=== PATIENT | female | born 1970 | race Caucasian/White ===

== ENCOUNTER 2017-12-23 14:16 | Inpatient (IN) | payer MEDICAID, OTHER ==
[~2017-12-23] VITALS: Ht 160 cm; Wt 54.7 kg
[~2017-12-23 14:16] MED LIST: ALPR0.5T99 PO; HYDR50 PO; LEVA500T PO; METO25CR PO; METR-1 PO; NAPR-810 PO; NORC7.5T PO; NYST100010 TOP; ZITHTAB PO; ZOFR4TAB3 SL
[2017-12-23 15:35] VITALS: BP 144/81; PULSE 101; RESP 17; TEMP 99.5; O2SAT 97
[2017-12-23] MEDS ORDERED: diphenhydrAMINE HCL 50 MG CAP - HS PRN PO (16:30)
[2017-12-23] MEDS ORDERED: HALOPERIDOL LACTATE 5 MG/ML AMP IM PRN (16:30)
[2017-12-23] MEDS ORDERED: diphenhydrAMINE HCL 50 MG CAP PO PRN (16:30)
[2017-12-23] MEDS ORDERED: ALUMINUM/MAGNESIUM/SIMETH 30 ML CUP PO PRN (16:30)
[2017-12-23] MEDS ORDERED: LORazepam 2 MG/ML VIAL IV PUSH PRN ×4 (16:30)
[2017-12-23] MEDS ORDERED: MAGNESIUM HYDROXIDE SUSP 30 ML CUP PO PRN (16:30)
[2017-12-23] MEDS ORDERED: hydrOXYzine HCL 50 MG TAB PO PRN (16:30)
[2017-12-23] MEDS ORDERED: diphenhydrAMINE HCL 50 MG/ML VIAL - HS PRN IM (16:30)
[2017-12-23] MEDS ORDERED: diphenhydrAMINE HCL 50 MG/ML VIAL IM PRN (16:30)
[2017-12-23] MEDS ORDERED: FLUMAZENIL 0.5 MG/5 ML VIAL IV PUSH PRN (16:30)
[2017-12-23] MEDS: LORazepam 2 MG TAB PO PRN (16:52)
[2017-12-23] MEDS: NICOTINE 21 MG/24 HR PATCH T-DERMAL SCH ×2 (17:01→22:05)
[2017-12-23 19:00] VITALS: BP 144/81; PULSE 101; RESP 17; TEMP 99.5; O2SAT 97
[2017-12-23] MEDS: REMOVE OLD NICOTINE PATCH T-DERMAL SCH (21:00)
[2017-12-23] MEDS: ACETAMINOPHEN 325 MG TAB PO PRN (22:36)
[2017-12-24 05:52] VITALS: BP 139/90; PULSE 90; RESP 20; TEMP 97.8; O2SAT 97
[2017-12-24] MEDS: NICOTINE 21 MG/24 HR PATCH T-DERMAL SCH (08:12)
[2017-12-24] MEDS: LORazepam 1 MG TAB PO PRN ×4 (08:12→22:24)
[2017-12-24] MEDS ORDERED: MIRTAZAPINE 15 MG TAB PO ONE (08:30)
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
[2017-12-24] MEDS: hydrOXYzine HCL 50 MG TAB PO PRN ×2 (08:57→18:00)
[2017-12-24] MEDS ORDERED: PNEUMOCOCCAL POLYVALENT INJ 25 MCG/0.5 ML SYR IM ONE (10:00)
[2017-12-24] MEDS: FOLIC ACID 1 MG TAB PO SCH (14:07)
[2017-12-24] MEDS: THIAMINE HCL 100 MG TAB PO SCH (14:07)
--- NOTE | 2017-12-24 14:15 | PD.CONS ---
HPI Service [facility] Consult Requested By Psychiatry team Reason for Consult Assist with medical management Primary Care Physician Justino Lackey D.O. Diagnoses: History of Present Illness Patient is a 47-year-old female with primary medical history of HTN, HLD, cirrhosis, chronic pain, anxiety, cervical cancer, GERD who is a transfer from [facility]. Review of record, patient is under Bo act by [place] [employer] 12/20/17 trying to kill herself 12/19/17 drowning herself in the bathtub, and admits to being suicidal to the law enforcement. Patient states that she was drinking too much and does not know what is going on in happening to her that it was not a good idea that she tried to drown herself in the bathtub. Patient admits to drinking vodka every day. States that she attempted to be sober for several times but she started drinking back. Complains of chronic back pain is states she is taking Percocets before but was discontinued because of liver cirrhosis. Patient states she was placed on oxycodone after. Requesting for pain medicine. States pain is 6-8/10, radiating to her legs, aggravated by movement, relieved by pain medicine. States that Tylenol is not working. She reports that she does not have any alcohol withdrawal seizures but when she withdraws from alcohol she has chest pain, palpitations, nausea, vomiting, diarrhea. She also states that she has the "shakes" when this happens. Review of Systems Constitutional: DENIES: Fever, Chills, Change in appetite Eyes: DENIES: Blurred vision, Eye pain, Double Vision Ears, nose, mouth, throat: DENIES: Tinnitus, Nasal discharge, Oral lesions, Throat pain, Hoarseness, Running Nose Respiratory: DENIES: Cough, Wheezing, Sputum production, Shortness of breath Cardiovascular: COMPLAINS OF: Palpitations, DENIES: Dyspnea on Exertion, Lower Extremity Edema Gastrointestinal: DENIES: Abdominal pain Musculoskeletal: COMPLAINS OF: Muscle aches, Stiffness, Back pain, Neck pain Neurologic: COMPLAINS OF: Headache, Tremor, DENIES: Localized weakness, Paresthesias Psychiatric: COMPLAINS OF: Anxiety, Mood changes, Depression, Hallucinations Past Family Social History Allergies: Coded Allergies: ketorolac (Unverified Allergy, Intermediate, hives, 11/08/17) Uncoded Allergies: STEROIDS (Allergy, Unknown, Swelling, 11/08/17) Past Medical History Anxiety Cervical cancer GERD HTN Chronic pain HLD Cirrhosis of the liver Past Surgical History TSH L Cholecystectomy Discectomy with hardware placement cervical spine Reported Medications Reports she takes oxycodone, metoprolol Active Ordered Medications Current Medications Medications (Trade) Dose Ordered Sig/Jael Route Start Time Stop Time Status Last Admin (Benadryl) 50 mg Q6H PRN PO 12/23/17 16:30 (Benadryl) 50 mg HS PRN PO 12/23/17 16:30 (Tylenol) 650 mg Q4H PRN PO 12/23/17 16:30 12/23/17 22:36 (Milk Of Magnesia Liq) 30 ml DAILY PRN PO 12/23/17 16:30 (Mag-Al Plus Susp Liq) 30 ml Q6H PRN PO 12/23/17 16:30 (Habitrol 21 Mg Patch.24 Hr) 1 patch DAILY T-DERMAL 12/23/17 17:00 12/24/17 08:12 Miscellaneous Information 1 HS T-DERMAL 12/23/17 21:00 12/23/17 21:00 (Ativan) 1 mg Q4H PRN PO 12/23/17 16:30 12/24/17 11:22 (Ativan Inj) 1 mg Q4H PRN IV PUSH 12/23/17 16:30 (Ativan) 2 mg Q2H PRN PO 12/23/17 16:30 12/23/17 16:52 (Ativan Inj) 2 mg Q2H PRN IV PUSH 12/23/17 16:30 (Ativan Inj) 2 mg Q1H PRN IV PUSH 12/23/17 16:30 (Ativan Inj) 2 mg Q15M PRN IV PUSH 12/23/17 16:30 (Romazicon Inj) 0.2 mg Q1M PRN IV PUSH 12/23/17 16:30 (Atarax) 50 mg Q6H PRN PO 12/24/17 08:15 12/24/17 08:57 (SEROquel) 50 mg HS PO 12/24/17 21:00 (Folate) 1 mg DAILY PO 12/24/17 13:30 12/24/17 14:07 (Vitamin B1) 100 mg DAILY PO 12/24/17 13:30 12/24/17 14:07 Family History Mother has breast cancer Does not know father's medical history Social History Alcohol use daily Current smoker, half a pack per day 30 years Denies illicit drug use Physical Exam Vital Signs Vital Signs Date Time Temp Pulse Resp B/P (MAP) Pulse Ox O2 Delivery O2 Flow Rate FiO2 12/24/17 05:52 97.8 90 20 139/90 (106) 97 12/23/17 19:00 99.5 101 17 144/81 (102) 97 12/23/17 15:35 99.5 101 17 144/81 (102) 97 Physical Exam GENERAL: This is a disheveled, appears older than stated age patient, in no apparent distress. SKIN: Warm and dry. Found Nitropaste patch bilateral extremity, states this is from [facility], dated 12/23/17 HEAD: Atraumatic. Normocephalic. No temporal or scalp tenderness. EYES: Pupils equal round and reactive. Extraocular motions intact. No scleral icterus. No injection or drainage. ENT: Nose without bleeding. Throat without erythema. Uvula midline. Airway patent. NECK: Trachea midline. CARDIOVASCULAR: Regular rate and rhythm without murmurs, gallops, or rubs. RESPIRATORY: Clear to auscultation. Breath sounds equal bilaterally. No wheezes , rales, or rhonchi. GASTROINTESTINAL: Abdomen soft, non-tender, nondistended. Bowel sounds active 4 MUSCULOSKELETAL: Extremities without clubbing, cyanosis, or edema. Nontender to palpation cervical lumbar NEUROLOGICAL: Awake and alert. Cranial nerves II through XII intact. Motor and sensory grossly within normal limits. Normal speech. Assessment and Plan Problem List: (1) HTN (hypertension) ICD Code: I10 - Essential (primary) hypertension (2) Alcohol abuse with intoxication ICD Code: F10.129 - Alcohol abuse with intoxication, unspecified (3) Adjustment disorder with mixed disturbance of emotions and conduct ICD Code: F43.25 - Adjustment disorder with mixed disturbance of emotions and conduct (4) Drug-induced mood disorder ICD Code: F19.94 - Other psychoactive substance use, unspecified with psychoactive substance-induced mood disorder Status: Acute Assessment and Plan Patient is a 47-year-old female with primary medical history of HTN, HLD, cirrhosis, chronic pain, anxiety, cervical cancer, GERD who is a transfer from [facility] for suicide attempt, [place]. She is now admitted to inpatient evaluation. Consulted for assistance in medical management Depression, anxiety Drug-induced disorder -Managed by psychiatry HTN -States she is taking metoprolol at home -Will ask nursing to reconcile meds. -Current BP trend within normal, slight tachycardia -this can also be possibly from withdrawals Alcohol abuse Liver cirrhosis -Check LFTs -Avoid hepatotoxic agents -Folic acid, thiamine, multivitamin Chronic pain -Patient states she is taking oxycodone at home review of [employer] patient is not on any medications except for alprazolam -Previously was given morphine 15 mg tablets last dose was 09/21/17, hydrocodone/acetaminophen 10 mg/325mg last dose 08/31/17 -We will not give patient narcotic medications, she appears to have seeking behaviors. -Baclofen TID Dysuria -check ua DVT prop ambulatory Code Status Full code Discussed Condition With Patient, nursing Dann Marroquin Dec 24, 2017 14:15
[2017-12-24 14:59] LABS: BILIRUBIN, URINE NEG (NEG); BLOOD, URINE NEG (NEG); GLUCOSE,URINE NEG (NEG); KETONE, URINE NEG (NEG); MUCUS URINE FEW /lpf (OCC); NITRITE,URINE NEG (NEG); SQUAMOUS EPITHELIAL CELL URINE <1 /hpf (0-5); URINE COLOR YELLOW (YELLW/STRAW); URINE LEUKOCYTE ESTERASE TRACE (NEG)
[2017-12-24] MEDS: BACLOFEN 10 MG TAB PO PRN (18:15)
[2017-12-24 18:33] VITALS: BP 130/82; PULSE 80; RESP 18; TEMP 98.4; O2SAT 96
[2017-12-24] MEDS: REMOVE OLD NICOTINE PATCH T-DERMAL SCH (20:58)
[2017-12-24] MEDS ORDERED: QUEtiapine FUMARATE 25 MG TAB PO SCH (21:00)
[2017-12-25 05:40] VITALS: BP 147/96; PULSE 111; RESP 16; TEMP 98.2; O2SAT 95
[2017-12-25] MEDS: THIAMINE HCL 100 MG TAB PO SCH (08:36)
[2017-12-25] MEDS: FOLIC ACID 1 MG TAB PO SCH (08:36)
[2017-12-25] MEDS: NICOTINE 21 MG/24 HR PATCH T-DERMAL SCH (09:00)
[2017-12-25] MEDS: BACLOFEN 10 MG TAB PO PRN ×2 (09:22→17:42)
[2017-12-25] MEDS: LORazepam 1 MG TAB PO PRN ×2 (09:22→17:42)
[2017-12-25 10:02] LABS: ALBUMIN 3.5 GM/DL (3.4-5.0); AST (GOT) 69 U/L (15-37); BICARBONATE 26.4 MEQ/L (21.0-32.0); BLOOD UREA NITROGEN 12 MG/DL (7-18); CALCIUM 9.2 MG/DL (8.5-10.1); CHLORIDE 105 MEQ/L (98-107); CREATININE 0.55 MG/DL (0.50-1.00); GLOMERULAR FILTRATION RATE 118 ML/MIN (>89); GLUCOSE,RANDOM 130 MG/DL (74-106); SODIUM (NA) 140 MEQ/L (136-145)
[2017-12-25 10:03] LABS: ALT (GPT) 47 U/L (10-53); CHOLESTEROL 190 MG/DL (120-200); DIRECT BILIRUBIN ADULT 0.2 MG/DL (0.0-0.2); TRIGLYCERIDES 105 MG/DL (42-150)
[2017-12-25 10:05] LABS: ALKALINE PHOSPHATASE 248 U/L (45-117); CHOLESTEROL/ HDL RATIO 1.99 RATIO; HDL CHOLESTEROL 95.4 MG/DL (40.0-60.0); INDIRECT BILIRUBIN 0.4 MG/DL (0.0-0.8); LDL CHOLESTEROL 74 MG/DL (0-99); TOTAL BILIRUBIN ADULT 0.6 MG/DL (0.2-1.0); TOTAL PROTEIN 8.3 GM/DL (6.4-8.2)
[2017-12-25] MEDS: LORazepam 2 MG TAB PO PRN (11:26)
--- NOTE | 2017-12-25 11:39 | PD.PSY.CON ---
Provisional Diagnosis Admission Date Dec 23, 2017 at 15:10 [place] I. 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 Yee Reason for Consult Second opinion Primary Care Physician Justino Lackey D.O. HPI Patient 47-year-old white female comes here under Bo act by the [place] [employer] dated 12/20/17 at 222 hours that document reviewed stating that contact was made with Mima hearing responding to the seeing upon arrival they spoke with her it was learned that Mima tried to kill herself at night 12/19 9 drowning herself in a bathtub and asked if she was still suicidal and she said yes to the law enforcement officers it appears she try to kill herself a few weeks ago by medication overdose with Bo acted at that time also patient seen screened at [facility] blood alcohol level of 282. At the present time patient sitting in her room nurse Radha present throughout session. Patient is alert disheveled reluctantly acknowledges being an alcoholic with daily drinking cello drinking she drinks vodka she has a history of blacking out and passing out. Patient states she lives with her who is also a drinker. Patient states she was in the detox the first part of November maintain sobriety for only a day or 2 after leaving the rehabilitation program patient giving reasons related to family stress of family members financial issues. Patient states she's been in at least 3 or 4 different detoxes and rehabs. She also acknowledges the prior Bo act. Patient states she does not see a psychiatrist at the present time. Patient denies suicidality at this time I feel there is still a very high risk of her relapsing interest alcohol misuse, and suicidal tendencies. Thus I feel patient does meet criteria for further psychiatric hospitalization of the Bo act I'll do first opinion request second opinion. Patient states she has been prescribed Remeron and Seroquel. This been documented in the papers from the other hospital we will place on Remeron 50 mg at bedtime and Seroquel 50 mg at at bedtime. Otherwise we'll keep her on the ciwa protocol. Will the hospitalist consult with us barbie patient does have significant issues with cirrhosis liver function some hypertension. We need to contact patient's get further information. This be fairly short stay she can return home 12/25/17 -second opinion Patient is a 47-year-old woman who carries a diagnosis of alcohol use disorder, depression, with no previous psychiatric admissions 1 and recent suicide attempt via overdose and prior to admission also another suicide attempt which patient attempted to drown herself in the bathtub which she was then admitted to ICU in the [place] and subsequently transferred to the inpatient psychiatry unit here at [facility] for further evaluation and management. Patient was found lying hospital bed noted B, cooperative. Discussion nursing staff reported the patient has been mostly seclusive to her room and focused on pain but denied any suicide ideations at this time. Patient states that she had been feeling decreased motivation for the past year along with increasing depression due to having had a few deaths in the family specifically her mom and her best friend. Patient states that the anniversary of her mom's was November 23. Patient reports having had difficulty with sleep, decreased appetite, energy, with feelings of guilt of not spending time with family, reporting be more isolative, decreased motivation as well as feeling worsening depression. Patient states that she had an argument last week with her which they had both been drinking and after left patient attempted to drown herself in her bathtub where she was subsequently admitted to the ICU prior to her admission here. Patient this time continues report feeling depressed, anxious, denying any suicide ideations at this time noted to be tearful throughout interview. Past Family Social History Coded Allergies: ketorolac (Unverified Allergy, Intermediate, hives, 11/08/17) Uncoded Allergies: STEROIDS (Allergy, Unknown, Swelling, 11/08/17) Current Medications Medications (Trade) Dose Ordered Sig/Jael Route Start Time Stop Time Status Last Admin (Benadryl) 50 mg Q6H PRN PO 12/23/17 16:30 (Benadryl) 50 mg HS PRN PO 12/23/17 16:30 (Tylenol) 650 mg Q4H PRN PO 12/23/17 16:30 12/23/17 22:36 (Milk Of Magnesia Liq) 30 ml DAILY PRN PO 12/23/17 16:30 (Mag-Al Plus Susp Liq) 30 ml Q6H PRN PO 12/23/17 16:30 (Habitrol 21 Mg Patch.24 Hr) 1 patch DAILY T-DERMAL 12/23/17 17:00 12/25/17 09:00 Miscellaneous Information 1 HS T-DERMAL 12/23/17 21:00 12/24/17 20:58 (Ativan) 1 mg Q4H PRN PO 12/23/17 16:30 12/25/17 09:22 (Ativan Inj) 1 mg Q4H PRN IV PUSH 12/23/17 16:30 (Ativan) 2 mg Q2H PRN PO 12/23/17 16:30 12/25/17 11:26 (Ativan Inj) 2 mg Q2H PRN IV PUSH 12/23/17 16:30 (Ativan Inj) 2 mg Q1H PRN IV PUSH 12/23/17 16:30 (Ativan Inj) 2 mg Q15M PRN IV PUSH 12/23/17 16:30 (Romazicon Inj) 0.2 mg Q1M PRN IV PUSH 12/23/17 16:30 (Atarax) 50 mg Q6H PRN PO 12/24/17 08:15 12/24/17 18:00 (SEROquel) 50 mg HS PO 12/24/17 21:00 12/24/17 20:55 (Folate) 1 mg DAILY PO 12/24/17 13:30 12/25/17 08:36 (Vitamin B1) 100 mg DAILY PO 12/24/17 13:30 12/25/17 08:36 (Lioresal) 10 mg Q8HR PRN PO 12/24/17 15:15 12/25/17 09:22 Patient's Strengths (min. 2) Patient verbal stable axis health care Physical Exam Vital Signs Vital Signs Date Time Temp Pulse Resp B/P (MAP) Pulse Ox O2 Delivery O2 Flow Rate FiO2 12/25/17 05:40 98.2 111 16 147/96 (113) 95 Lab Results Test 12/24/17 14:25 12/25/17 08:25 Urine Color YELLOW Urine Turbidity CLEAR Urine pH 7.0 Urine Specific [place] 1.012 Urine Protein NEG mg/dL Urine Glucose (UA) NEG mg/dL Urine Ketones NEG mg/dL Urine Occult Blood NEG Urine Nitrite NEG Urine Bilirubin NEG Urine Urobilinogen LESS THAN 2.0 MG/DL Urine Leukocyte Esterase TRACE Urine WBC 2 /hpf Urine Squamous Epithelial Cells <1 /hpf Urine Mucus FEW /lpf Microscopic Urinalysis Comment CULT NOT INDICATED Blood Urea Nitrogen 12 MG/DL Creatinine 0.55 MG/DL Random Glucose 130 MG/DL Total Protein 8.3 GM/DL Albumin 3.5 GM/DL Calcium Level 9.2 MG/DL Alkaline Phosphatase 248 U/L Aspartate Amino Transf (AST/SGOT) 69 U/L Alanine Aminotransferase (ALT/SGPT) 47 U/L Total Bilirubin 0.6 MG/DL Direct Bilirubin 0.2 MG/DL Sodium Level 140 MEQ/L Potassium Level 3.7 MEQ/L Chloride Level 105 MEQ/L Carbon Dioxide Level 26.4 MEQ/L Anion Gap 9 MEQ/L Estimat Glomerular Filtration Rate 118 ML/MIN Indirect Bilirubin 0.4 MG/DL Triglycerides Level 105 MG/DL Cholesterol Level 190 MG/DL LDL Cholesterol 74 MG/DL HDL Cholesterol 95.4 MG/DL Cholesterol/HDL Ratio 1.99 RATIO Mental Status Examination Appearance: Disheveled Consciousness: Alert Orientation: Person, Place, Date/Time Motor Activity: Normal gait Speech: Unremarkable Language: Adequate Fund of Knowledge: Adequate Attention and Concentration: Other (fair) Memory: Unremarkable (fair) Mood: Sad Affect: Sad, Other (Tearful throughout interview) Thought Process & Associations: Linear Thought Content: Appropriate Hallucination Type: None Delusion Type: None Suicidal Ideation: No (denies this time) Suicidal Plan: No (denies this time) Suicidal Intention: No (90s at this time) Homicidal Ideation: No Homicidal Plan: No Homicidal Intention: No Insight: Poor Judgment: Poor Assessment & Plan Problem List: (1) Adjustment disorder with mixed disturbance of emotions and conduct ICD Codes: F43.25 - Adjustment disorder with mixed disturbance of emotions and conduct (2) Alcohol abuse with intoxication ICD Codes: F10.129 - Alcohol abuse with intoxication, unspecified Assessment & Plan I reviewed documentation and upon my evaluation and independent findings agree with Dr. Yee and his assessment and plan. Second opinion completed for involuntary hospitalization. Patient this time continues report feeling depressed, denying suicide ideations but admitted to recent suicide attempt via drowning herself in a bathtub. Patient will continue on mirtazapine 15mg at bedtime, will increase quetiapine to 100 mg p.o. at bedtime for mood stabilization and depression with upward titration. Continue on CIWA protocol, continue withdrawal precautions. Continue monitor with behavior. Discharge planning in progress Discharge Planning Patient to return back to her residence upon stabilization Request HC Surrog/Guard Advoc?: Paulo Kline MD Dec 25, 2017 11:39
--- NOTE | 2017-12-25 13:29 | HHI.PR ---
Subjective Remarks Follow-up visit HTN, HLD, cirrhosis, chronic pain. Patient seen and examined today laying in bed. Reports she does not feel well. Reports increased anxiety , palpitations, feeling her heart racing. Reports back pain improved denies SOB / dyspnea. Denies chest pain, headaches, dizziness. Denies fevers, chills, n/v/ d. Denies dysuria. Objective Vitals Vital Signs Date Time Temp Pulse Resp B/P (MAP) Pulse Ox O2 Delivery O2 Flow Rate FiO2 12/25/17 05:40 98.2 111 16 147/96 (113) 95 12/24/17 18:33 98.4 80 18 130/82 (98) 96 I/O 12/24/17 12/24/17 12/24/17 12/25/17 12/25/17 12/25/17 07:00 15:00 23:00 07:00 15:00 23:00 Intake Total 240 ml Balance 240 ml Intake Oral 240 ml Result Diagram: 12/25/17 0825 Objective Remarks GENERAL: This is a patient who appears older than stated age patient, in no apparent distress. SKIN: Warm and dry. HEAD:Normocephalic. . EYES: Pupils equal round and reactive. Extraocular motions intact. No scleral icterus. No injection or drainage. ENT: Nose without bleeding. Throat without erythema. Uvula midline. Airway patent. NECK: Trachea midline. CARDIOVASCULAR: Tachycardic without murmurs, gallops, or rubs. RESPIRATORY: Clear to auscultation. Breath sounds equal bilaterally. No wheezes , rales, or rhonchi. GASTROINTESTINAL: Abdomen soft, non-tender, nondistended. Bowel sounds active 4 MUSCULOSKELETAL: Extremities without clubbing, cyanosis, or edema. Nontender to palpation cervical lumbar NEUROLOGICAL: Awake and alert. Cranial nerves II through XII intact. Motor and sensory grossly within normal limits. Normal speech. A/P Problem List: (1) HTN (hypertension) ICD Code: I10 - Essential (primary) hypertension (2) Alcohol abuse with intoxication ICD Code: F10.129 - Alcohol abuse with intoxication, unspecified (3) Adjustment disorder with mixed disturbance of emotions and conduct ICD Code: F43.25 - Adjustment disorder with mixed disturbance of emotions and conduct (4) Drug-induced mood disorder ICD Code: F19.94 - Other psychoactive substance use, unspecified with psychoactive substance-induced mood disorder Status: Acute Assessment and Plan Patient is a 47-year-old female with primary medical history of HTN, HLD, cirrhosis, chronic pain, anxiety, cervical cancer, GERD who is a transfer from [facility] for suicide attempt, BA. She is now admitted to inpatient evaluation. Consulted for assistance in medical management Depression, anxiety Drug-induced disorder -Managed by psychiatry HTN -States she is taking metoprolol at home 3 times a day. Will restart metoprolol 25 mg twice daily with hold parameters -Monitor BP trend Alcohol abuse Liver cirrhosis -Avoid hepatotoxic agents -Folic acid, thiamine, multivitamin -AST 69, ALT within normal, alk phos 248 Chronic pain -Patient states she is taking oxycodone at home review of [employer] patient is not on any medications except for alprazolam -Previously was given morphine 15 mg tablets last dose was 09/21/17, hydrocodone/acetaminophen 10 mg/325mg last dose 08/31/17 -We will not give patient narcotic medications, she appears to have seeking behaviors. -Baclofen TID. Discuss with patient that -Improved Dysuria -UA negative -Patient states she was treated at [facility] prior 5 days DVT prop ambulatory Dann Marroquin Dec 25, 2017 13:29
[2017-12-25] MEDS: METOPROLOL TARTRATE 25 MG TAB PO SCH ×2 (14:57→21:22)
[2017-12-25 16:30] LABS: HEMOGLOBIN A1C 4.5 % (4.3-6.0)
[2017-12-25 18:25] VITALS: BP 168/91; PULSE 96; RESP 18; TEMP 98.1; O2SAT 98
[2017-12-25] MEDS: REMOVE OLD NICOTINE PATCH T-DERMAL SCH (21:00)
[2017-12-25] MEDS ORDERED: QUEtiapine FUMARATE 100 MG TAB PO SCH (21:00)
[2017-12-25] MEDS: MIRTAZAPINE 15 MG TAB PO SCH (21:22)
[2017-12-26 06:13] VITALS: BP 120/83; PULSE 93; RESP 16; TEMP 98.1
[2017-12-26] MEDS: METOPROLOL TARTRATE 25 MG TAB PO SCH ×2 (08:34→21:53)
[2017-12-26] MEDS: FOLIC ACID 1 MG TAB PO SCH (08:34)
[2017-12-26] MEDS: THIAMINE HCL 100 MG TAB PO SCH (08:34)
[2017-12-26] MEDS: LORazepam 1 MG TAB PO PRN ×2 (08:34→14:26)
[2017-12-26] MEDS: BACLOFEN 10 MG TAB PO PRN ×2 (08:34→18:41)
[2017-12-26] MEDS: NICOTINE 21 MG/24 HR PATCH T-DERMAL SCH (08:37)
--- NOTE | 2017-12-26 13:16 | HHI.PR ---
Subjective Remarks Follow-up visit HTN, HLD, cirrhosis, chronic pain. Patient seen and examined in the day room. She is calm and cooperative, denies any fevers, chills, nausea, vomiting, diarrhea, weakness, urinary or fecal incontinence. She continues to complain of back pain and goes on to tell me that she has had surgery of her neck in the past and was suppose to followup with pain management for imaging, however was unable to afford MRI cost therefore did not follow up. She tells me she is in the process of finding a new pain management doctor, repots that her old one doctor "just cared about the money." She reports that she is trying to be more active however due to back and neck pain feels like she has to lay down and rest at times. Objective Vitals Vital Signs Date Time Temp Pulse Resp B/P (MAP) Pulse Ox O2 Delivery O2 Flow Rate FiO2 12/26/17 06:13 98.1 93 16 120/83 (95) 12/25/17 18:25 98.1 96 18 168/91 (116) 98 I/O 12/25/17 12/25/17 12/25/17 12/26/17 12/26/17 12/26/17 07:00 15:00 23:00 07:00 15:00 23:00 Intake Total 240 ml 240 ml Balance 240 ml 240 ml Intake Oral 240 ml 240 ml Result Diagram: 12/25/17 0825 Imaging GENERAL: This is a patient who appears older than stated age patient, in no apparent distress. SKIN: Warm and dry. HEAD:Normocephalic. . EYES: Pupils equal round and reactive. Extraocular motions intact. No scleral icterus. No injection or drainage. ENT: Nose without bleeding. Airway patent. NECK: Trachea midline. Active ROM of neck to L&R with no visible limitations. CARDIOVASCULAR: Tachycardic without murmurs, gallops, or rubs. RESPIRATORY: Clear to auscultation. Breath sounds equal bilaterally. No wheezes , rales, or rhonchi. GASTROINTESTINAL: Abdomen soft, non-tender, nondistended. Bowel sounds active 4 MUSCULOSKELETAL: Extremities without clubbing, cyanosis, or edema. Nontender to palpation cervical lumbar NEUROLOGICAL: Awake and alert. Cranial nerves II through XII grossly intact. Motor and sensory grossly within normal limits. Normal speech. A/P Problem List: (1) HTN (hypertension) ICD Code: I10 - Essential (primary) hypertension (2) Alcohol abuse with intoxication ICD Code: F10.129 - Alcohol abuse with intoxication, unspecified (3) Adjustment disorder with mixed disturbance of emotions and conduct ICD Code: F43.25 - Adjustment disorder with mixed disturbance of emotions and conduct (4) Drug-induced mood disorder ICD Code: F19.94 - Other psychoactive substance use, unspecified with psychoactive substance-induced mood disorder Status: Acute Assessment and Plan Patient is a 47-year-old female with primary medical history of HTN, HLD, cirrhosis, chronic pain, anxiety, cervical cancer, GERD who is a transfer from [facility] for suicide attempt, BA. She is now admitted to inpatient evaluation. Consulted for assistance in medical management Depression, anxiety Drug-induced disorder -Managed by psychiatry HTN -Reports taking metoprolol at home 3 times a day. Started on metoprolol 25 mg twice daily with hold parameters - BP improved this AM Alcohol abuse Liver cirrhosis -Avoid hepatotoxic agents -Folic acid, thiamine, multivitamin -AST 69, ALT within normal, alk phos 248 Chronic pain -Patient states she is taking oxycodone at home review of [employer] patient is not on any medications except for alprazolam -Previously was given morphine 15 mg tablets last dose was 09/21/17, hydrocodone/acetaminophen 10 mg/325mg last dose 08/31/17 -We will not give patient narcotic medications, she appears to have seeking behaviors. -Baclofen TID, will add Lidoderm patch. Discuss with patient that she will need to have outpatient followup and workup by pain management, verbalized understanding. Dysuria -UA negative -Patient states she was treated at [facility] prior 5 days - Denies urinary complaints DVT prop ambulatory Sandi Pardo Dec 26, 2017 13:16
--- NOTE | 2017-12-26 13:16 | HHI.PYPN ---
Subjective Remarks Patient seen for follow, chart reviewed. Discussion nursing staff reported patient continued to be anxious and requiring Ativan slept well. Patient was found lying hospital bed B, cooperative. Patient states that she slept okay, reports her mood has been "better" reports continued feeling depressed but denying any suicide ideations at this time. Patient denies any physical symptoms although states having some tremors still. Patient reports having visited by her who are both contemplating attending outpatient rehabilitation program for alcohol use. Review of Systems Except as stated in HPI: all other systems reviewed are Neg Mental Status Examination Appearance: Disheveled Consciousness: Alert Orientation: Person, Place, Date/Time Motor Activity: Normal gait Speech: Unremarkable Language: Adequate Fund of Knowledge: Adequate Attention and Concentration: Other (fair) Memory: Unremarkable (fair) Mood: Sad Affect: Sad, Other (Tearful throughout interview) Thought Process & Associations: Linear Thought Content: Appropriate Hallucination Type: None Delusion Type: None Suicidal Ideation: No (denies this time) Suicidal Plan: No (denies this time) Suicidal Intention: No (90s at this time) Homicidal Ideation: No Homicidal Plan: No Homicidal Intention: No Insight: Poor Judgment: Poor Results Vitals/IOs Vital Signs Date Time Temp Pulse Resp B/P (MAP) Pulse Ox O2 Delivery O2 Flow Rate FiO2 12/26/17 06:13 98.1 93 16 120/83 (95) 12/25/17 18:25 98 Intake and Output 12/26/17 12/26/17 12/27/17 08:00 16:00 00:00 Intake Total 240 ml Balance 240 ml Assessment & Plan Problem List: (1) Adjustment disorder with mixed disturbance of emotions and conduct ICD Codes: F43.25 - Adjustment disorder with mixed disturbance of emotions and conduct (2) Alcohol abuse with intoxication ICD Codes: F10.129 - Alcohol abuse with intoxication, unspecified Assessment & Plan Patient this time continues to be showing signs and symptoms of withdrawal, continue CIWA protocol. Patient reports continued feeling depressed with denying suicide ideations. We will increase quetiapine to 200 mg p.o. at bedtime and continue mirtazapine 50 mg p.o. at bedtime. Continue rest of medications, continue monitor mood and behavior. Discharge planning in progress. Justification for Cont. Inpt. At risk for further decompensation if at lower level of care Discharge Planning Patient return back to her residence when psychiatrically stable. Request HC Surrog/Guard Advoc?: No Paulo Miller MD Dec 26, 2017 13:16
[2017-12-26] MEDS: LIDOCAINE HCL 5% PATCH T-DERMAL SCH (14:26)
--- NOTE | 2017-12-26 16:42 | EKG ---
Date Performed: 12/25/2017 Time Performed: 13:40:50 PTAGE: 47 years EKG: ATRIAL FLUTTER/TACHYCARDIA WITH RAPID VENTRICULAR RESPONSE MINIMAL ST DEPRESSION Since prev ious tracing, no significant change noted ABNORMAL RHYTHM ECG PREVIOUS TRACING : 12/08/2014 00.59 DOCTOR: Graham Gómez Interpretating Date/Time 12/26/2017 16:40:39
[2017-12-26 18:19] VITALS: BP 131/90; PULSE 100; RESP 20; TEMP 98.2; O2SAT 98
[2017-12-26] MEDS: ACETAMINOPHEN 325 MG TAB PO PRN (18:42)
[2017-12-26] MEDS: REMOVE OLD NICOTINE PATCH T-DERMAL SCH (21:00)
[2017-12-26] MEDS ORDERED: QUEtiapine FUMARATE 100 MG TAB PO SCH (21:00)
[2017-12-26] MEDS: MIRTAZAPINE 15 MG TAB PO SCH (21:53)
[2017-12-27] MEDS: hydrOXYzine HCL 50 MG TAB PO PRN ×2 (06:11→19:36)
[2017-12-27 06:28] VITALS: BP 100/59; PULSE 88; RESP 17; TEMP 98.2
[2017-12-27] MEDS: NICOTINE 21 MG/24 HR PATCH T-DERMAL SCH (09:00)
[2017-12-27] MEDS: LIDOCAINE HCL 5% PATCH T-DERMAL SCH (09:00)
[2017-12-27] MEDS: FOLIC ACID 1 MG TAB PO SCH (09:00)
[2017-12-27] MEDS: THIAMINE HCL 100 MG TAB PO SCH (09:00)
[2017-12-27] MEDS: METOPROLOL TARTRATE 25 MG TAB PO SCH ×2 (09:00→21:34)
[2017-12-27] MEDS: ACETAMINOPHEN 325 MG TAB PO PRN ×2 (09:04→19:36)
[2017-12-27] MEDS ORDERED: PILL SPLITTER OTHER PRN (09:15)
[2017-12-27] MEDS: BACLOFEN 10 MG TAB PO PRN ×2 (09:35→17:39)
--- NOTE | 2017-12-27 11:44 | HHI.PYPN ---
Subjective Remarks Patient seen for follow, chart reviewed. Discussion nursing staff reported the patient in a compliant medications been noted to be more visible on the unit. Patient was found in the room notably, cooperative. Patient reports having had a little difficulty with sleep last evening but feels rested in the morning. Her mood has been "good" continues report feeling somewhat anxious but reports being motivated to continue outpatient follow-up and engage in outpatient rehabilitation program for alcohol use. Patient's time denies any SI. Review of Systems Except as stated in HPI: all other systems reviewed are Neg Mental Status Examination Appearance: Appropriate Consciousness: Alert Orientation: Person, Place, Date/Time Motor Activity: Normal gait Speech: Unremarkable Language: Adequate Fund of Knowledge: Adequate Attention and Concentration: Other (fair) Memory: Unremarkable (fair) Mood: Sad (Less so today) Affect: Sad (Less so today) Thought Process & Associations: Goal directed, Linear Thought Content: Appropriate Hallucination Type: None Delusion Type: None Suicidal Ideation: No Suicidal Plan: No Suicidal Intention: No Homicidal Ideation: No Homicidal Plan: No Homicidal Intention: No Insight: Fair Judgment: Impulsive Results Vitals/IOs Vital Signs Date Time Temp Pulse Resp B/P (MAP) Pulse Ox O2 Delivery O2 Flow Rate FiO2 12/27/17 06:28 98.2 88 17 100/59 (73) 12/26/17 18:19 98 Assessment & Plan Problem List: (1) Adjustment disorder with mixed disturbance of emotions and conduct ICD Codes: F43.25 - Adjustment disorder with mixed disturbance of emotions and conduct (2) Alcohol abuse with intoxication ICD Codes: F10.129 - Alcohol abuse with intoxication, unspecified Assessment & Plan Patient this time noted to have improvement of mood although reporting feeling somewhat depressed and anxious but denying any suicide ideations. We will continue to titrate quetiapine to 300 mg p.o. at bedtime for depression and mood stabilization. Continue rest of medications. Continue to monitor mood and behavior. Continue CIWA protocol. Patient likely for discharge tomorrow if continues to improve. Justification for Cont. Inpt. At risk of further decompensation at lower level of care Request HC Surrog/Guard Advoc?: Paulo Kline MD Dec 27, 2017 11:44
--- NOTE | 2017-12-27 13:36 | HHI.PR ---
Subjective Remarks Follow-up visit HTN, HLD, cirrhosis, chronic pain. Patient seen and examined resting in bed comfortably in no acute distress. She denies any fevers, chills , nausea, vomiting, diarrhea, headache, cough, shortness of breath, urinary or fecal incontinence. She reports that Lidoderm patch did help with pain somewhat , reports that she will possibly be discharged tomorrow. Objective Vitals Vital Signs Date Time Temp Pulse Resp B/P (MAP) Pulse Ox O2 Delivery O2 Flow Rate FiO2 12/27/17 06:28 98.2 88 17 100/59 (73) 12/26/17 18:19 98.2 100 20 131/90 (104) 98 I/O 12/26/17 12/26/17 12/26/17 12/27/17 12/27/17 12/27/17 07:00 15:00 23:00 07:00 15:00 23:00 Intake Total 240 ml Balance 240 ml Intake Oral 240 ml Result Diagram: 12/25/17 0825 Objective Remarks GENERAL: This is a patient who appears older than stated age patient, in no apparent distress. SKIN: Warm and dry. HEAD:Normocephalic. . EYES: Pupils equal round and reactive. Extraocular motions intact. No scleral icterus. No injection or drainage. ENT: Nose without bleeding. Airway patent. NECK: Trachea midline. CARDIOVASCULAR: Tachycardic without murmurs, gallops, or rubs. RESPIRATORY: Clear to auscultation. Breath sounds equal bilaterally. No wheezes , rales, or rhonchi. GASTROINTESTINAL: Abdomen soft, non-tender, nondistended. Bowel sounds active 4 MUSCULOSKELETAL: Extremities without clubbing, cyanosis, or edema. Nontender to palpation cervical lumbar NEUROLOGICAL: Awake and alert. Cranial nerves II through XII grossly intact. Motor and sensory grossly within normal limits. Normal speech. A/P Problem List: (1) HTN (hypertension) ICD Code: I10 - Essential (primary) hypertension (2) Alcohol abuse with intoxication ICD Code: F10.129 - Alcohol abuse with intoxication, unspecified (3) Adjustment disorder with mixed disturbance of emotions and conduct ICD Code: F43.25 - Adjustment disorder with mixed disturbance of emotions and conduct (4) Drug-induced mood disorder ICD Code: F19.94 - Other psychoactive substance use, unspecified with psychoactive substance-induced mood disorder Status: Acute Assessment and Plan Patient is a 47-year-old female with primary medical history of HTN, HLD, cirrhosis, chronic pain, anxiety, cervical cancer, GERD who is a transfer from [facility] for suicide attempt, BA. She is now admitted to inpatient evaluation. Consulted for assistance in medical management Depression, anxiety Drug-induced disorder -Managed by psychiatry HTN -Reports taking metoprolol at home 3 times a day. On metoprolol 25 mg twice daily with parameters -BP this morning 100/59, will decrease metoprolol to 12.5 mg twice daily Alcohol abuse Liver cirrhosis -Avoid hepatotoxic agents -Folic acid, thiamine, multivitamin -AST 69, ALT within normal, alk phos 248 Chronic pain -Patient states she is taking oxycodone at home review of [employer] patient is not on any medications except for alprazolam -Previously was given morphine 15 mg tablets last dose was 09/21/17, hydrocodone/acetaminophen 10 mg/325mg last dose 08/31/17 -We will not give patient narcotic medications, she appears to have seeking behaviors. -Baclofen TID, and Lidoderm patch. Some relief with Lidoderm patch, will need to follow-up as outpatient with pain management, verbalized understanding. Dysuria -UA negative -Patient states she was treated at [facility] prior 5 days - Denies urinary complaints DVT prop ambulatory Patient possibly to be discharged tomorrow [facility] will sign off, please reconsult if needed. Sandi Pardo Dec 27, 2017 13:35
[2017-12-27] MEDS ORDERED: QUEtiapine FUMARATE 100 MG TAB PO SCH (21:00)
[2017-12-27] MEDS ORDERED: REMOVE OLD LIDOCAINE PATCH T-DERMAL SCH (21:00)
[2017-12-27] MEDS: REMOVE OLD NICOTINE PATCH T-DERMAL SCH (21:00)
[2017-12-27] MEDS: MIRTAZAPINE 15 MG TAB PO SCH (21:32)
[2017-12-28 05:15] VITALS: BP 102/63; PULSE 83; RESP 16; TEMP 97.6; O2SAT 94
[2017-12-28] MEDS: FOLIC ACID 1 MG TAB PO SCH (08:25)
[2017-12-28] MEDS: METOPROLOL TARTRATE 25 MG TAB PO SCH (08:26)
[2017-12-28] MEDS: BACLOFEN 10 MG TAB PO PRN (08:26)
[2017-12-28] MEDS: THIAMINE HCL 100 MG TAB PO SCH (08:26)
[2017-12-28] MEDS: NICOTINE 21 MG/24 HR PATCH T-DERMAL SCH (08:26)
[2017-12-28] MEDS: LIDOCAINE HCL 5% PATCH T-DERMAL SCH (08:31)
[2017-12-28] MEDS: ACETAMINOPHEN 325 MG TAB PO PRN (08:33)
[2017-12-28] MEDS ORDERED: METO25TA3 PO (12:23)
[2017-12-28] MEDS ORDERED: THIA100 PO (12:23)
[2017-12-28] MEDS ORDERED: HYDR50TA94 PO (12:23)
[2017-12-28] MEDS ORDERED: MIRTA15 PO (12:23)
[2017-12-28] MEDS ORDERED: FOLI1TAB6 PO (12:23)
[2017-12-28] MEDS ORDERED: QUET1TAB10 PO (12:23)
--- NOTE | 2017-12-28 12:24 | HHI.DS ---
Psychiatry Discharge Summary Inpatient Psychiatric care?: Yes Advance Directive: No Reason Not Provided: WRITTEN MATERIAL GIVEN TO PT Mental Health AdvanceDirective: No Health Care Proxy: No Admission Admission Date Dec 23, 2017 at 15:10 Admission Diagnosis: (1) Adjustment disorder with mixed disturbance of emotions and conduct ICD Code: F43.25 - Adjustment disorder with mixed disturbance of emotions and conduct (2) Alcohol abuse with intoxication ICD Code: F10.129 - Alcohol abuse with intoxication, unspecified Brief History Patient 47-year-old white female comes here under Bo act by the [employer] dated 12/20/17 at 222 hours that document reviewed stating that contact was made with Mima hearing responding to the seeing upon arrival they spoke with her it was learned that Mima tried to kill herself at night 12/19 9 drowning herself in a bathtub and asked if she was still suicidal and she said yes to the law enforcement officers it appears she try to kill herself a few weeks ago by medication overdose with Bo acted at that time also patient seen screened at [facility] blood alcohol level of 282. At the present time patient sitting in her room nurse Radha present throughout session. Patient is alert disheveled reluctantly acknowledges being an alcoholic with daily drinking cello drinking she drinks vodka she has a history of blacking out and passing out. Patient states she lives with her who is also a drinker. Patient states she was in the detox the first part of November maintain sobriety for only a day or 2 after leaving the rehabilitation program patient giving reasons related to family stress of family members financial issues. Patient states she's been in at least 3 or 4 different detoxes and rehabs. She also acknowledges the prior Bo act. Patient states she does not see a psychiatrist at the present time. Patient denies suicidality at this time I feel there is still a very high risk of her relapsing interest alcohol misuse, and suicidal tendencies. Thus I feel patient does meet criteria for further psychiatric hospitalization of the Bo act I'll do first opinion request second opinion. Patient states she has been prescribed Remeron and Seroquel. This been documented in the papers from the other hospital we will place on Remeron 50 mg at bedtime and Seroquel 50 mg at at bedtime. Otherwise we'll keep her on the ciwa protocol. Will the hospitalist consult with us barbie patient does have significant issues with cirrhosis liver function some hypertension. We need to contact patient's get further information. This be fairly short stay she can return home 12/25/17 -second opinion Patient is a 47-year-old woman who carries a diagnosis of alcohol use disorder, depression, with no previous psychiatric admissions 1 and recent suicide attempt via overdose and prior to admission also another suicide attempt which patient attempted to drown herself in the bathtub which she was then admitted to ICU in the [place] and subsequently transferred to the inpatient psychiatry unit here at [facility] for further evaluation and management. Patient was found lying hospital bed noted B, cooperative. Discussion nursing staff reported the patient has been mostly seclusive to her room and focused on pain but denied any suicide ideations at this time. Patient states that she had been feeling decreased motivation for the past year along with increasing depression due to having had a few deaths in the family specifically her mom and her best friend. Patient states that the anniversary of her mom's was November 23. Patient reports having had difficulty with sleep, decreased appetite, energy, with feelings of guilt of not spending time with family, reporting be more isolative, decreased motivation as well as feeling worsening depression. Patient states that she had an argument last week with her which they had both been drinking and after left patient attempted to drown herself in her bathtub where she was subsequently admitted to the ICU prior to her admission here. Patient this time continues report feeling depressed, anxious, denying any suicide ideations at this time noted to be tearful throughout interview. Tobacco Use In Past 30 Days: 5 or More Cigarettes/Day Alcohol Use: 4 or More Times Per Week Hospital Course Patient is a 47-year-old woman who carries a diagnosis of alcohol use disorder, depression, with no previous psychiatric admissions 1 and recent suicide attempt via overdose and prior to admission also another suicide attempt which patient attempted to drown herself in the bathtub which she was then admitted to ICU in the [place] and subsequently transferred to the inpatient psychiatry unit here at [facility] for further evaluation and management. Patient was continued on mirtazapine 15mg HS and started on quetiapine which was titrated up to 300mg HS along with CIWA protocol for withdrawal. Patient initially was endorsing feeling depressed with suicidal ideations but as medications were titrated up patient continued to report less intense and less suicidal ideations and mood began to improve which patient became more hopeful and future-oriented. Patient continue with treatment and was noted to have improvement of mood, was noted to be cooperative with staff as well as improvement in personal hygiene. Patient was noted to have improvement of insight and judgment. Patient was adherent to medication regimen and recommendations as per primary medical team. Upon discharge patient stated feeling good, stated feeling okay with returning back to her residence, was calm and cooperative with staff. She agreed to continuing medical recommendations, treatment and attend outpatient follow up appointments for continuity of care. Patient denies SI, HI, AVH or delusions. Supportive psychotherapy provided and counseled on abstinence from alcohol use. Patient advised to call 911 or return back to the ED in case of any emergency. Patient agrees with plan. Results Blood Pressure 102 / 63 Vital Signs Date Time Temp Pulse Resp B/P (MAP) Pulse Ox O2 Delivery O2 Flow Rate FiO2 12/28/17 05:15 97.6 83 16 102/63 (76) 94 Laboratory Results Test 12/25/17 08:25 Cholesterol Level 190 MG/DL (120-200) HDL Cholesterol 95.4 MG/DL (40.0-60.0) Hemoglobin A1c 4.5 % (4.3-6.0) LDL Cholesterol 74 MG/DL (0-99) Triglycerides Level 105 MG/DL (42-150) Summary of Procedures none Pending results at discharge: No Medications # of Antipsychotic meds at D/C: 1 Approp Antipsych med options 1 - Minimum of three failed multiple trials of monotherapy. 2 - Documented plan to taper to monotherapy due to previous use of multiple meds OR cross-taper in progress at D/C. 3 - Documentation of augmentation of Clozapine. 4 - Justification other than those listed in allowable values 1-3, document here : Discharge Discharge Date: Dec 28, 2017 Discharge Diagnosis: (1) Adjustment disorder with mixed disturbance of emotions and conduct ICD Code: F43.25 - Adjustment disorder with mixed disturbance of emotions and conduct (2) Alcohol abuse with intoxication ICD Code: F10.129 - Alcohol abuse with intoxication, unspecified Pt Condition on Discharge: Stable Discharge Disposition: Disch w/ Home Health Serv Discharge Instructions Diet Instructions: Heart Healthy Diet Activities you can perform: Regular-No Restrictions Scheduled Appointment: JOSEPH Appointment Date: Dec 29, 2017 Appointment Time: 3:45pm Discharge Time > 30 minutes Mental Status Examination Appearance: Appropriate Consciousness: Alert Orientation: Person, Place, Date/Time Motor Activity: Normal gait Speech: Unremarkable Language: Adequate Fund of Knowledge: Adequate Attention and Concentration: Adequate Memory: Unremarkable (fair) Mood: Appropriate Affect: Appropriate Thought Process & Associations: Intact, Goal directed, Linear Thought Content: Appropriate Hallucination Type: None Delusion Type: None Suicidal Ideation: No Suicidal Plan: No Suicidal Intention: No Homicidal Ideation: No Homicidal Plan: No Homicidal Intention: No Insight: Adequate Judgment: Adequate Discharge/Advance Care Plan Health Problems: (1) Adjustment disorder with mixed disturbance of emotions and conduct (2) Alcohol abuse with intoxication Goals to promote your health * To prevent worsening of your condition and complications * To maintain your health at the optimal level Directions to meet your goals Take your medications as prescribed Follow your dietary instruction Follow activity as directed Keep your appointments as scheduled Take your immunizations and boosters as scheduled If your symptoms worsen call your PCP, if no PCP go to Urgent Care Center or Emergency Room For 17/04 questions related to your inpatient stay or results of tests pending at discharge, please contact Dr. Paulo Miller at Smoking is Dangerous to Your Health. Avoid second hand smoking Paulo Miller MD Dec 28, 2017 12:24
== END 2017-12-28 13:50 | disposition home health service (06) | DRG 882 ==
LOC: H270 15:10 → H260 12-24 15:00
PROVIDERS: ADMIT Student in an Organized Health Care Education/Training Program; ATTEND Student in an Organized Health Care Education/Training Program
DX: F43.25 Adjustment disorder with mixed disturbance of emotions and conduct (principal); R45.851 Suicidal ideations; K70.30 Alcoholic cirrhosis of liver without ascites; I10 Essential (primary) hypertension; F10.230 Alcohol dependence with withdrawal, uncomplicated; E78.5 Hyperlipidemia, unspecified; G89.29 Other chronic pain; F41.9 Anxiety disorder, unspecified; K21.9 Gastro-esophageal reflux disease without esophagitis; M54.2 Cervicalgia; F17.210 Nicotine dependence, cigarettes, uncomplicated; R30.0 Dysuria; F10.220 Alcohol dependence with intoxication, uncomplicated; F32.9 Major depressive disorder, single episode, unspecified; Z91.5 Personal history of self-harm; Z91.410 Personal history of adult physical and sexual abuse; Z85.41 Personal history of malignant neoplasm of cervix uteri
CPT/HCPCS: 80048; 80061; 80076; 81001; 83036; 93005

== ENCOUNTER 2018-03-04 23:19 | Emergency (ER) | payer MEDICAID ==
[~2018-03-04] VITALS: Ht 165.1 cm; Wt 65.0 kg
[~2018-03-04 23:19] MED LIST changes: +ALPR.5 PO; -ALPR0.5T99 PO; -HYDR50 PO; +HYDR50TA94 PO; -LEVA500T PO; -METO25CR PO; +METO25TA3 PO; -METR-1 PO; +MIRTA15 PO; -NAPR-810 PO; -NORC7.5T PO; -NYST100010 TOP; +PERC5TAB12 PO; +SERO100T PO; -ZITHTAB PO; -ZOFR4TAB3 SL
[2018-03-04 23:22] VITALS: BP 135/78; PULSE 108; RESP 16; TEMP 98.2; O2SAT 84
[2018-03-04] MEDS ORDERED: SODIUM CHLORIDE 0.9% FLUSH 10 ML FLUSH IVF PRN (23:45)
--- NOTE | 2018-03-04 23:45 | PD ---
HPI Chief Complaint: Psychiatric Symptoms Time Seen by Provider: 23:40 Travel History International Travel<30 days: No Contact w/Intl Traveler<30days: No Traveled to known affect area: No History of Present Illness HPI This is a 48-year-old female who presents under Bo act initially by the Police Department. According to her paperwork she contacted the Police Department after she wrapped shirt around her chest as some sort of suicidal gesture. The patient reports that she has been feeling depressed and suicidal for the past month. She says that she has been depressed because her mother recently , her is in senior care and she has a broken left arm. She reports that she sustained a left wrist fracture in early January and ended up having surgery on her left wrist at a hospital in [place]. She is currently wearing a short arm cast. She reports that she has run out of her pain medication and she has persistent pain in left arm. In addition she is complaining of chest pain. Symptoms started 1 month ago. She describes it as a sharp substernal chest pain which is worse with movement and deep inspiration. Associated dyspnea. She is currently intoxicated and verbally abusive and therefore history is limited to the above information. [facility] Past Medical History Arthritis: No Asthma: No Autoimmune Disease: No Anxiety: Yes Depression: Yes Heart Rhythm Problems: No Cancer: Yes (CERVICAL AND SKIN) Cardiovascular Problems: No High Cholesterol: Yes Chemotherapy: No Chest Pain: Yes Congestive Heart Failure: No COPD: No Cerebrovascular Accident: No Diabetes: No Endocrine: No GERD: Yes Genitourinary: No Hiatal Hernia: Yes Hypertension: Yes Immune Disorder: No Kidney Stones: No Musculoskeletal: Yes Neurologic: No Psychiatric: Yes Reproductive: No Respiratory: No Immunizations Current: Yes Migraines: No Radiation Therapy: No Renal Failure: No Seizures: No Sickle Cell Disease: No Sleep Apnea: No Thyroid Disease: No Ulcer: No : 5 Para: 3 Miscarriage: 2 Past Surgical History Abdominal Surgery: Yes (RACHELLE) AICD: No Arteriovenous Shunt: No Body Medical Devices: PLATE IN POSTERIOR NECK AND JAW Cardiac Surgery: No Cholecystectomy: Yes (2007) Ear Surgery: No Endocrine Surgery: No Eye Surgery: No Genitourinary Surgery: No Gynecologic Surgery: Yes (CERVICAL CA ) Hysterectomy: Yes (TOTAL) Insulin Pump: No Joint Replacement: No Oral Surgery: No Pacemaker: No Thoracic Surgery: No Other Surgery: Yes () Social History Alcohol Use: Yes (FORMER ALCOHOLIC; OCC) Tobacco Use: Yes (<1 PPD) Substance Use: No Allergies-Medications (Allergen,Severity, Reaction): Coded Allergies: ketorolac (Unverified Allergy, Intermediate, hives, 02/01/18) Uncoded Allergies: STEROIDS (Allergy, Unknown, Swelling, 11/08/17) Reported Meds & Prescriptions Reported Meds & Active Scripts Active Percocet (Oxycodone-Acetaminophen) 5-325 mg Tab 1-2 Tab PO Q6H PRN Hydroxyzine HCl 50 Mg Tab 50 Mg PO Q6H PRN 10 Days Mirtazapine 15 Mg Tab 15 Mg PO HS 30 Days Metoprolol Tartrate 25 Mg Tab 12.5 Mg PO Q12HR 30 Days Reported Seroquel (Quetiapine Fumarate) 100 Mg Tab 150 Mg PO HS Xanax (Alprazolam) 0.5 Mg Tab 0.5 Mg PO BID PRN Review of Systems Except as stated in HPI: all other systems reviewed are Neg Physical Exam Narrative GENERAL: This is a disheveled foul-mouthed female who is in no acute distress SKIN: Warm and dry. HEAD: Atraumatic. Normocephalic. EYES: Pupils equal and round. No scleral icterus. No injection or drainage. ENT: No nasal bleeding or discharge. Mucous membranes pink and moist. NECK: Trachea midline. No JVD. CARDIOVASCULAR: Regular rate and rhythm. No murmur appreciated. RESPIRATORY: No accessory muscle use. Clear to auscultation. Breath sounds equal bilaterally. GASTROINTESTINAL: Abdomen soft, non-tender, nondistended. Hepatic and splenic margins not palpable. MUSCULOSKELETAL: Left short arm cast is in place. Compartments of the left arm are soft. Distal sensation is intact. Capillary refill less than 2 seconds all digits left hand. Some tenderness to palpation to the anterior chest wall as well. NEUROLOGICAL: Awake and alert. No obvious cranial nerve deficits. Motor grossly within normal limits. Slurred speech Data Data Last Documented VS Vital Signs Date Time Temp Pulse Resp B/P (MAP) Pulse Ox O2 Delivery O2 Flow Rate FiO2 03/05/18 02:24 16 03/05/18 00:48 102 95 Room Air 03/04/18 23:22 98.2 135/78 (97) Orders Orders Electrocardiogram (03/04/18 23:42) Ckmb (Isoenzyme) Profile (03/04/18 23:42) Complete Blood Count With Diff (03/04/18 23:42) Comprehensive Metabolic Panel (03/04/18 23:42) Magnesium (Mg) (03/04/18 23:42) Prothrombin Time / Inr (Pt) (03/04/18 23:42) Act Partial Throm Time (Ptt) (03/04/18 23:42) Troponin I (03/04/18 23:42) Chest, Single Ap (03/04/18:42) Ecg Monitoring (03/04/18 23:42) Bilateral Bp Monitoring (03/04/18 23:42) Iv Access Insert/Monitor (03/04/18:42) Oximetry (03/04/18:42) Oxygen Administration (03/04/18 23:42) Sodium Chloride 0.9% Flush (Ns Flush) (03/04/18 23:45) Thyroid Stimulating Hormone (03/04/18 23:42) Drug Screen, Random Urine (03/04/18:42) Alcohol (Ethanol) (03/04/18 23:42) Salicylates (Aspirin) (03/04/18 23:42) Tylenol (Acetaminophen) (03/04/18 23:42) Ct Pulmonary Angiogram (03/05/18 ) Morphine Inj (Morphine Inj) (03/05/18 01:15) CKMB (03/05/18 00:10) CKMB% (03/05/18 00:10) Iohexol 350 Inj (Omnipaque 350 Inj) (03/05/18 01:50) Troponin I (03/05/18 03:10) Labs Laboratory Tests Test 03/05/18 00:10 03/05/18 03:10 White Blood Count 5.6 TH/MM3 Red Blood Count 4.00 MIL/MM3 Hemoglobin 12.4 GM/DL Hematocrit 37.9 % Mean Corpuscular Volume 94.8 FL Mean Corpuscular Hemoglobin 31.1 PG Mean Corpuscular Hemoglobin Concent 32.8 % Red Cell Distribution Width 19.7 % Platelet Count 224 TH/MM3 Mean Platelet Volume 7.5 FL Neutrophils (%) (Auto) 45.6 % Lymphocytes (%) (Auto) 47.2 % Monocytes (%) (Auto) 4.6 % Eosinophils (%) (Auto) 1.5 % Basophils (%) (Auto) 1.1 % Neutrophils # (Auto) 2.6 TH/MM3 Lymphocytes # (Auto) 2.7 TH/MM3 Monocytes # (Auto) 0.3 TH/MM3 Eosinophils # (Auto) 0.1 TH/MM3 Basophils # (Auto) 0.1 TH/MM3 CBC Comment DIFF FINAL Differential Comment Prothrombin Time 10.9 SEC Prothromb Time International Ratio 1.1 RATIO Activated Partial Thromboplast Time 26.3 SEC Blood Urea Nitrogen 8 MG/DL Creatinine 0.52 MG/DL Random Glucose 97 MG/DL Total Protein 7.9 GM/DL Albumin 3.4 GM/DL Calcium Level 8.5 MG/DL Magnesium Level 1.9 MG/DL Alkaline Phosphatase 236 U/L Aspartate Amino Transf (AST/SGOT) 57 U/L Alanine Aminotransferase (ALT/SGPT) 30 U/L Total Bilirubin 0.3 MG/DL Sodium Level 146 MEQ/L Potassium Level 3.9 MEQ/L Chloride Level 109 MEQ/L Carbon Dioxide Level 27.1 MEQ/L Anion Gap 10 MEQ/L Estimat Glomerular Filtration Rate 125 ML/MIN Total Creatine Kinase 137 U/L Creatine Kinase MB 2.7 NG/ML Troponin I LESS THAN 0.02 NG/ML LESS THAN 0.02 NG/ML Thyroid Stimulating Hormone 3rd Gen 0.257 uIU/ML Salicylates Level LESS THAN 1.7 MG/DL Acetaminophen Level LESS THAN 2.0 MCG/ML Ethyl Alcohol Level 316 MG/DL MDM Medical Decision Making Medical Screen Exam Complete: Yes Emergency Medical Condition: Yes Medical Record Reviewed: Yes Differential Diagnosis Adjustment reaction, acute psychosis, substance-induced mood disorder, major depressive disorder, depressive disorder not otherwise specified Pleurisy, costochondritis, rib fracture, contusion, pulmonary embolism, pneumothorax, hemothorax, aortic dissection, acute coronary syndrome Narrative Course The patient's initial vital signs when she was triage document a pulse oximetry of 84%. A new pulse oximetry probe was placed on her finger and her pulse oximetry is 95% on room air with a good waveform. The patient was placed on ECG monitoring pulse oximetry. A 12 EKG was obtained. Lab work, chest x-ray, CT pulmonary angiogram are pending. EKG reveals sinus rhythm. Chest x-ray is unremarkable. CT pulmonary angiogram reveals no evidence of PE, mild bilateral groundglass opacity presenting atelectasis or minimal pulmonary edema. Alcohol level is 316. Initial CK and troponin are negative. A repeat troponin was performed and it is also negative. Her pain seems musculoskeletal as it is reproducible with palpation and reassuringly her cardiac workup is negative. The patient is medically cleared for psychiatric disposition. Diagnosis Primary Impression: Medical clearance for psychiatric admission Additional Impression: Alcohol intoxication Trey Thomas Mar 04, 2018 23:45
[2018-03-05] VITALS: BP 132/74; PULSE 96; RESP 22; O2SAT 95
--- NOTE | 2018-03-05 00:41 | RADRPT ---
EXAM DATE: 03/05/2018 12:09 AM EDT AGE/SEX: 48 years / Female INDICATIONS: Chest pain. CLINICAL DATA: This is the patient's initial encounter. Patient reports that signs and symptoms have been present for 1 day and indicates a pain score of 5/10. MEDICAL/SURGICAL HISTORY: . Cardiovascular disease. None. COMPARISON: No prior exams available for comparison. FINDINGS: A single AP view of the chest demonstrates the lungs to be symmetrically aerated without evidence of mass, infiltrate or effusion. The cardiomediastinal contours are unremarkable. Osseous structures a re intact. CONCLUSION: No acute cardiopulmonary disease identified. Electronically signed by: Gerardo Sim MD 03/05/2018 12:40 AM EDT
[2018-03-05 00:48] VITALS: PULSE 102; RESP 14; O2SAT 95
[2018-03-05 00:51] LABS: AUTOMATED NEUTROPHIL # 2.6 TH/MM3 (1.8-7.7); BASOPHIL # 0.1 TH/MM3 (0-0.2); BASOPHIL % 1.1 % (0.0-2.0); EOSINOPHIL # 0.1 TH/MM3 (0-0.4); EOSINOPHIL % 1.5 % (0.0-4.0); HEMATOCRIT 37.9 % (35.0-46.0); HEMOGLOBIN 12.4 GM/DL (11.6-15.3); LYMPH % 47.2 % (9.0-44.0); LYMPHOCYTE # 2.7 TH/MM3 (1.0-4.8); MEAN CELL VOLUME 94.8 FL (80.0-100.0); MEAN CORPUSCULAR HEMOGLOBIN 31.1 PG (27.0-34.0); MEAN CORPUSCULAR HGB CONC 32.8 % (32.0-36.0); MEAN PLATELET VOLUME 7.5 FL (7.0-11.0); MONO % 4.6 % (0.0-8.0); MONOCYTE # 0.3 TH/MM3 (0-0.9); NEUT % 45.6 % (16.0-70.0); PLATELET COUNT 224 TH/MM3 (150-450); RED CELL DISTRIBUTION WIDTH 19.7 % (11.6-17.2); WHITE BLOOD COUNT 5.6 TH/MM3 (4.0-11.0)
[2018-03-05 00:59] LABS: INTERNATIONAL NORMALIZED RATIO 1.1 RATIO; PROTHROMBIN TIME - PATIENT 10.9 SEC (9.8-11.6)
[2018-03-05 01:04] LABS: ALBUMIN 3.4 GM/DL (3.4-5.0); ALT (GPT) 30 U/L (10-53); AST (GOT) 57 U/L (15-37); BICARBONATE 27.1 MEQ/L (21.0-32.0); BLOOD UREA NITROGEN 8 MG/DL (7-18); CALCIUM 8.5 MG/DL (8.5-10.1); CHLORIDE 109 MEQ/L (98-107); CREATININE 0.52 MG/DL (0.50-1.00); GLOMERULAR FILTRATION RATE 125 ML/MIN (>89); GLUCOSE,RANDOM 97 MG/DL (74-106); MAGNESIUM 1.9 MG/DL (1.5-2.5); SODIUM (NA) 146 MEQ/L (136-145)
[2018-03-05 01:13] LABS: ALKALINE PHOSPHATASE 236 U/L (45-117); TOTAL BILIRUBIN ADULT 0.3 MG/DL (0.2-1.0); TOTAL PROTEIN 7.9 GM/DL (6.4-8.2); TROPONIN I LESS THAN 0.02 NG/ML (0.02-0.05)
[2018-03-05 01:15] LABS: ACETAMINOPHEN LESS THAN 2.0 MCG/ML (10.0-30.0)
[2018-03-05] MEDS ORDERED: MORPHINE SULFATE 4 MG/ML INJ IV PUSH ONE (01:15)
[2018-03-05] MEDS ORDERED: IOHEXOL 350 MG/ML 10 ML VIAL (for RAD DIAG) IVCONTRAST ONE (01:50)
[2018-03-05 02:00] VITALS: PULSE 96; RESP 20; O2SAT 96
--- NOTE | 2018-03-05 02:02 | RADRPT ---
EXAM DATE: 03/05/2018 1:51 AM EDT AGE/SEX: 48 years / Female INDICATIONS: Chest pain and shortness of breath; rule out pulmonary embolus. CLINICAL DATA: This is the patient's initial encounter. Patient reports that signs and symptoms have been present for 1 day and indicates a pain score of 5/10. MEDICAL/SURGICAL HISTORY: Hypertension. Cirrhosis. Gastroesophageal reflux disease. Substance ab use, Cervical cancer Hysterectomy. Cholecystectomy. Cervical fusion RADIATION DOSE: 9.22 CTDI (mGy) COMPARISON: [facility], CT PULMONARY ANGIOGRAM, 11/08/2017. . TECHNIQUE: Volumetric scanning was performed using a multi-row detector CT scanner during bolus infu fiona of 67 ml Omnipaque 350 (iohexol) nonionic water-soluble contrast as a single exam dose. The john a was post processed with a variety of visualization algorithms including full volume maximum intensi ty projection and sliding thin slab reformation. Using automated exposure control and adjustment of the mA and/or kV according to patient size, radiation dose was kept as low as reasonably achievable t o obtain optimal diagnostic quality images. FINDINGS: Pulmonary Arteries: No filling defects are seen in the pulmonary arteries out to the subsegmental ve ssels. The left and right pulmonary arteries are normal in diameter. Lung: Mild patchy groundglass opacity in the lungs bilaterally may represent atelectasis or minimal pulmonary edema. Effusion: None. Mediastinum: No evidence of mediastinal or hilar adenopathy. Thoracic aorta diameter unchanged and w ithin normal limits. Other: There is diffuse nodularity of the liver capsule suggesting cirrhosis. CONCLUSION: 1. No evidence of pulmonary embolus. 2. Mild bilateral groundglass opacity in the lungs may represent atelectasis or minimal pulmonary ed zan. Electronically signed by: Gerardo Sim MD 03/05/2018 2:01 AM EDT
[2018-03-05 04:00] VITALS: BP 130/68; PULSE 94; RESP 18; O2SAT 93
[2018-03-05] MEDS ORDERED: diphenhydrAMINE HCL 50 MG/ML VIAL IV PUSH ONE (04:00)
[2018-03-05 08:00] VITALS: BP 136/73; PULSE 94; RESP 16; TEMP 98.4; O2SAT 96
--- NOTE | 2018-03-05 12:02 | PD ---
Physical Exam Narrative I was asked by the psych department to discharge patient after patient was evaluated and Bo acted lifted by psych. Patient was previously medically cleared by previous provider. Please see their documentation for full H&P. Patient denies any homicidal or suicidal ideations. Patient complaining feeling nauseous and continued left pain in her forearm from recent surgery. 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 Denies any other medical concerns at this time. Data Data Last Documented VS Vital Signs Date Time Temp Pulse Resp B/P (MAP) Pulse Ox O2 Delivery O2 Flow Rate FiO2 03/05/18 12:47 88 17 128/72 (90) 98 03/05/18 08:00 98.4 Room Air Orders Orders Electrocardiogram (03/04/18 23:42) Ckmb (Isoenzyme) Profile (03/04/18 23:42) Complete Blood Count With Diff (03/04/18 23:42) Comprehensive Metabolic Panel (03/04/18 23:42) Magnesium (Mg) (03/04/18 23:42) Prothrombin Time / Inr (Pt) (03/04/18 23:42) Act Partial Throm Time (Ptt) (03/04/18 23:42) Troponin I (03/04/18 23:42) Chest, Single Ap (03/04/18 23:42) Ecg Monitoring (03/04/18 23:42) Bilateral Bp Monitoring (03/04/18 23:42) Iv Access Insert/Monitor (03/04/18 23:42) Oximetry (03/04/18 23:42) Oxygen Administration (03/04/18 23:42) Sodium Chloride 0.9% Flush (Ns Flush) (03/04/18 23:45) Thyroid Stimulating Hormone (03/04/18 23:42) Drug Screen, Random Urine (03/04/18 23:42) Alcohol (Ethanol) (03/04/18 23:42) Salicylates (Aspirin) (03/04/18 23:42) Tylenol (Acetaminophen) (03/04/18 23:42) Ct Pulmonary Angiogram (03/05/18 ) Morphine Inj (Morphine Inj) (03/05/18 01:15) CKMB (03/05/18 00:10) CKMB% (03/05/18 00:10) Iohexol 350 Inj (Omnipaque 350 Inj) (03/05/18 01:50) Troponin I (03/05/18 03:10) Diphenhydramine Inj (Benadryl Inj) (03/05/18 04:00) Diet Regular Basic (03/05/18 Breakfast) Ed Discharge Order (03/05/18 12:02) Ondansetron Odt (Zofran Odt) (03/05/18 12:15) Labs Laboratory Tests Test 03/05/18 00:10 03/05/18 03:10 White Blood Count 5.6 TH/MM3 Red Blood Count 4.00 MIL/MM3 Hemoglobin 12.4 GM/DL Hematocrit 37.9 % Mean Corpuscular Volume 94.8 FL Mean Corpuscular Hemoglobin 31.1 PG Mean Corpuscular Hemoglobin Concent 32.8 % Red Cell Distribution Width 19.7 % Platelet Count 224 TH/MM3 Mean Platelet Volume 7.5 FL Neutrophils (%) (Auto) 45.6 % Lymphocytes (%) (Auto) 47.2 % Monocytes (%) (Auto) 4.6 % Eosinophils (%) (Auto) 1.5 % Basophils (%) (Auto) 1.1 % Neutrophils # (Auto) 2.6 TH/MM3 Lymphocytes # (Auto) 2.7 TH/MM3 Monocytes # (Auto) 0.3 TH/MM3 Eosinophils # (Auto) 0.1 TH/MM3 Basophils # (Auto) 0.1 TH/MM3 CBC Comment DIFF FINAL Differential Comment Prothrombin Time 10.9 SEC Prothromb Time International Ratio 1.1 RATIO Activated Partial Thromboplast Time 26.3 SEC Blood Urea Nitrogen 8 MG/DL Creatinine 0.52 MG/DL Random Glucose 97 MG/DL Total Protein 7.9 GM/DL Albumin 3.4 GM/DL Calcium Level 8.5 MG/DL Magnesium Level 1.9 MG/DL Alkaline Phosphatase 236 U/L Aspartate Amino Transf (AST/SGOT) 57 U/L Alanine Aminotransferase (ALT/SGPT) 30 U/L Total Bilirubin 0.3 MG/DL Sodium Level 146 MEQ/L Potassium Level 3.9 MEQ/L Chloride Level 109 MEQ/L Carbon Dioxide Level 27.1 MEQ/L Anion Gap 10 MEQ/L Estimat Glomerular Filtration Rate 125 ML/MIN Total Creatine Kinase 137 U/L Creatine Kinase MB 2.7 NG/ML Troponin I LESS THAN 0.02 NG/ML LESS THAN 0.02 NG/ML Thyroid Stimulating Hormone 3rd Gen 0.257 uIU/ML Salicylates Level LESS THAN 1.7 MG/DL Acetaminophen Level LESS THAN 2.0 MCG/ML Ethyl Alcohol Level 316 MG/DL MDM Supervised Visit with [facility]UPERT: No Narrative Course Patient in no obvious distress upon re-evaluation. All pertinent laboratory/ Radiology result(s) discussed with patient/family. Any questions/concerns in reference to patient diagnosis/condition discussed and clarified prior to patient's discharge. Reinforced sheer importance of close follow up with patient 's primary physician or primary care clinic. Instructed patient to return to ED immediately, if symptoms return/worsen. Patient showed understanding of above instructions. Further instructions and recommendations were detailed in discharge paperwork. Patient ambulated without difficulty out of ED at discharge. Diagnosis Primary Impression: Medical clearance for psychiatric admission Additional Impressions: Alcohol intoxication Qualified Codes: F10.920 - Alcohol use, unspecified with intoxication, uncomplicated Low thyroid stimulating hormone (TSH) level Referrals: [facility] Patient Instructions: Abuse of Alcohol (ED), General Instructions, Hyperthyroidism (ED) Additional Instruction: Follow-up with your primary care physician for reevaluation of your low thyroid stimulator hormone noted here today. Follow-up with [facility] for alcohol detox. Return to the emergency department if symptoms get worse. Disposition: 01 DISCHARGE HOME Condition: Stable Jay Kinney Mar 05, 2018 12:02
[2018-03-05] MEDS ORDERED: ONDANSETRON ODT 4 MG TAB PO ONE (12:15)
[2018-03-05 12:47] VITALS: BP 128/72
--- NOTE | 2018-03-05 14:47 | EKG ---
Date Performed: 03/05/2018 Time Performed: 00:03:57 PTAGE: 48 years EKG: Sinus rhythm POSSIBLE LEFT ATRIAL ENLARGEMENT BORDERLINE ECG Since the PREVIOUS TRACING , no significant change noted PREVIOUS TRACIN12/25/2017 13.40 DOCTOR: Angel Ramesh Interpretating Date/Time 03/05/2018 14:45:45
--- NOTE | 2018-03-05 15:37 | PD.PSY.CON ---
Provisional Diagnosis Admission Date Daphne I. Alcohol-induced mood disorder, alcohol use disorder Daphne II. Deferred Daphne III. Hypertension, chronic neck and back pain History of Present Illness Service Psychiatry Consult Requested By ER Reason for Consult Suicidal ideation Primary Care Physician Justino Lackey D.O. HPI The patient was seen this morning at 10 AM The patient is 48-year-old woman, domiciled in [place] with her , mother of 3 kids, unemployed, with psychiatric history of polysubstance abuse, including alcohol, opiates, 1 previous psychiatric hospitalization, one previous suicide attempt by overdosing, medical history hypertension, chronic back and neck pain, who presents under Bo act initially by the Police Department. According to her paperwork she contacted the Police Department after she wrapped shirt around her chest as some sort of suicidal gesture. The patient initially reports that she has been feeling depressed and suicidal for the past month. She says that she has been depressed because her mother recently , her is in [place] [facility] and she has a broken left arm. She reports that she sustained a left wrist fracture in early January and ended up having surgery on her left wrist at a hospital in [place]. She is currently wearing a short arm cast. She reports that she has run out of her pain medication and she has persistent pain in left arm. In addition she is complaining of chest pain. Patient reports that her main problem is pain, "I am depressed because I have so much pain, and nobody is able to prescribe pain medications for me". At this moment the patient denies suicidal and homicidal ideation, she denies visual and auditory hallucinations. Initial BAL was 316, but at the moment of the psychiatric evaluation the patient seems to be clinically sober. Reports daily use of alcohol. Patient is not interested in outpatient psychiatric care. She states that she does needs her pain medication. Oriented 3, no attention deficit, no fluctuation of consciousness. Review of Systems Constitutional: DENIES: Diaphoretic episodes, Fatigue, Fever, Weight gain, Weight loss, Chills, Dizziness, Change in appetite, Night Sweats Endocrine: DENIES: Abnorml menstrual pattern, Heat/cold intolerance, Polydipsia , Polyuria, Polyphagia Eyes: DENIES: Blurred vision, Diplopia, Eye inflammation, Eye pain, Vision loss , Photosensitivity, Double Vision Ears, nose, mouth, throat: DENIES: Tinnitus, Hearing loss, Vertigo, Nasal discharge, Oral lesions, Throat pain, Hoarseness, Ear Pain, Running Nose, Epistaxis, Sinus Pain, Toothache, Odynophagia Respiratory: DENIES: Apneas, Cough, Snoring, Wheezing, Hemoptysis, Sputum production, Shortness of breath Cardiovascular: DENIES: Chest pain, Palpitations, Syncope, Dyspnea on Exertion , PND, Lower Extremity Edema, Orthopnea, Claudication Gastrointestinal: DENIES: Abdominal pain, Black stools, Bloody stools, Constipation, Diarrhea, Nausea, Vomiting, Difficulty Swallowing, Anorexia Genitourinary: DENIES: Abnormal vaginal bleeding, Dysmenorrhea, Dyspareunia, Sexual dysfunction, Urinary frequency, Urinary incontinence, Urgency, Hematuria , Dysuria, Nocturia, Vaginal discharge Musculoskeletal: DENIES: Joint pain, Muscle aches, Stiffness, Joint Swelling, Back pain, Neck pain Integumentary: DENIES: Abnormal pigmentation, Pruritus, Rash, Nail changes, Breast masses, Breast skin changes, Nipple discharge Hematologic/lymphatic: DENIES: Bruising, Lymphadenopathy Immunologic/allergic: DENIES: Eczema, Urticaria Neurologic: DENIES: Abnormal gait, Headache, Localized weakness, Paresthesias, Seizures, Speech Problems, Tremor, Poor Balance Psychiatric: DENIES: Anxiety, Confusion, Mood changes, Depression, Hallucinations, Agitation, Suicidal Ideation, Homicidal Ideation, Delusions Past Family Social History Coded Allergies: ketorolac (Unverified Allergy, Intermediate, hives, 02/01/18) Uncoded Allergies: STEROIDS (Allergy, Unknown, Swelling, 11/08/17) Active Scripts Oxycodone-Acetaminophen (Percocet) 5-325 mg Tab, 1-2 TAB PO Q6H Y for PAIN, #12 TAB 0 Refills Prov:Mora Macias MD 02/01/18 Hydroxyzine HCl (Hydroxyzine HCl) 50 Mg Tab, 50 MG PO Q6H Y for ANXIETY for 10 Days, #40 TAB Prov:Paulo Miller MD 12/28/17 Mirtazapine (Mirtazapine) 15 Mg Tab, 15 MG PO HS for health for 30 Days, #30 TAB Prov:Paulo Miller MD 12/28/17 Metoprolol Tartrate (Metoprolol Tartrate) 25 Mg Tab, 12.5 MG PO Q12HR for health for 30 Days, #30 TAB Prov:Paulo Miller MD 12/28/17 Reported Medications Quetiapine (Seroquel) 100 Mg Tab, 150 MG PO HS, #30 TAB 0 Refills 02/01/18 Alprazolam (Xanax) 0.5 Mg Tab, 0.5 MG PO BID Y for ANXIETY, TAB 0 Refills 02/01/18 Family Psych History No family psychiatric history Social History Patient was born and raised in [place], she lives in [place] with her , she has 3 adult kids, unemployed, her highest level of education is high school Patient's Strengths (min. 2) Verbal communication Physical Exam No withdrawal symptoms Vital Signs Vital Signs Date Time Temp Pulse Resp B/P (MAP) Pulse Ox O2 Delivery O2 Flow Rate FiO2 03/05/18 12:47 88 17 128/72 (90) 98 03/05/18 08:00 98.4 Room Air Lab Results Test 03/05/18 00:10 03/05/18 03:10 White Blood Count 5.6 TH/MM3 Red Blood Count 4.00 MIL/MM3 Hemoglobin 12.4 GM/DL Hematocrit 37.9 % Mean Corpuscular Volume 94.8 FL Mean Corpuscular Hemoglobin 31.1 PG Mean Corpuscular Hemoglobin Concent 32.8 % Red Cell Distribution Width 19.7 % Platelet Count 224 TH/MM3 Mean Platelet Volume 7.5 FL Neutrophils (%) (Auto) 45.6 % Lymphocytes (%) (Auto) 47.2 % Monocytes (%) (Auto) 4.6 % Eosinophils (%) (Auto) 1.5 % Basophils (%) (Auto) 1.1 % Neutrophils # (Auto) 2.6 TH/MM3 Lymphocytes # (Auto) 2.7 TH/MM3 Monocytes # (Auto) 0.3 TH/MM3 Eosinophils # (Auto) 0.1 TH/MM3 Basophils # (Auto) 0.1 TH/MM3 CBC Comment DIFF FINAL Differential Comment Prothrombin Time 10.9 SEC Prothromb Time International Ratio 1.1 RATIO Activated Partial Thromboplast Time 26.3 SEC Blood Urea Nitrogen 8 MG/DL Creatinine 0.52 MG/DL Random Glucose 97 MG/DL Total Protein 7.9 GM/DL Albumin 3.4 GM/DL Calcium Level 8.5 MG/DL Magnesium Level 1.9 MG/DL Alkaline Phosphatase 236 U/L Aspartate Amino Transf (AST/SGOT) 57 U/L Alanine Aminotransferase (ALT/SGPT) 30 U/L Total Bilirubin 0.3 MG/DL Sodium Level 146 MEQ/L Potassium Level 3.9 MEQ/L Chloride Level 109 MEQ/L Carbon Dioxide Level 27.1 MEQ/L Anion Gap 10 MEQ/L Estimat Glomerular Filtration Rate 125 ML/MIN Total Creatine Kinase 137 U/L Creatine Kinase MB 2.7 NG/ML Troponin I LESS THAN 0.02 NG/ML LESS THAN 0.02 NG/ML Thyroid Stimulating Hormone 3rd Gen 0.257 uIU/ML Salicylates Level LESS THAN 1.7 MG/DL Acetaminophen Level LESS THAN 2.0 MCG/ML Ethyl Alcohol Level 316 MG/DL Mental Status Examination Appearance: Appropriate Consciousness: Alert Orientation: x4 Motor Activity: Normal gait Speech: Unremarkable Language: Adequate Fund of Knowledge: Adequate Attention and Concentration: Adequate Memory: Unremarkable Mood: Appropriate Affect: Appropriate Thought Process & Associations: Intact Thought Content: Appropriate Hallucination Type: None Delusion Type: None Suicidal Ideation: No Suicidal Plan: No Suicidal Intention: No Homicidal Ideation: No Homicidal Plan: No Homicidal Intention: No Insight: Adequate Judgment: Adequate Assessment & Plan Problem List: (1) Drug-induced mood disorder ICD Codes: F19.94 - Other psychoactive substance use, unspecified with psychoactive substance-induced mood disorder Status: Acute Assessment & Plan: On psychiatric evaluation today the patient is clinically sober, does not present any neuropsychiatric symptoms that require an immediate psychiatric intervention. Patient reports depression in the context of acute pain, but denies hopelessness, denies anhedonia, denies helplessness, denies suicidal and homicidal ideation, she denies visual and auditory hallucinations. She is logical, coherent and relevant. Quite goal-directed. Recent suicidal statement seems to be related with acute alcohol intoxication and also manipulative behavior to receive narcotics. She does not meet criteria for involuntary psychiatric admission. Will place the patient in [facility] protocol while in ER. Detox referral of her, the patient declined. Brief supportive psychotherapy, motivational psychoeducation provided. Bo act will be lifted Assessment & Plan Estimated LOS: Herson Zhang MD Mar 05, 2018 15:37
== END 2018-03-05 12:50 | disposition home or self-care (01) ==
LOC: NEPD 23:19
DX: F10.129 Alcohol abuse with intoxication, unspecified (principal); F10.14 Alcohol abuse with alcohol-induced mood disorder; R94.6 Abnormal results of thyroid function studies; R07.9 Chest pain, unspecified; R94.31 Abnormal electrocardiogram [ECG] [EKG]; Y90.8 Blood alcohol level of 240 mg/100 ml or more; E78.00 Pure hypercholesterolemia, unspecified; I10 Essential (primary) hypertension; F17.210 Nicotine dependence, cigarettes, uncomplicated; F32.9 Major depressive disorder, single episode, unspecified; Z85.41 Personal history of malignant neoplasm of cervix uteri; Z88.8 Allergy status to other drugs, medicaments and biological substances; Z79.899 Other long term (current) drug therapy
CPT/HCPCS: 71045; 71275; 80053; 80307; 82550; 82552; 83735; 84443; 84484; 85025; 85610; 85730; 93005; 96374; 96375; 99284; J1200; J2270; Q9967